=== PATIENT | female | born 1945 | race Two or more races ===

== ENCOUNTER 2017-05-05 06:50 | Emergency (ER) | payer BC ==
[2017-05-05 07:00] VITALS: BMI 33.7
--- NOTE | 2017-05-05 08:39 | PDOC ---
History of Present Illness - General History Source: Patient Exam Limitations: No Limitations - History of Present Illness Initial Comments: 05/05/17 09:21 The patient is a 72 year old female with a significant PMH of diabetes (on Lantus) who presents to the emergency department via EMS from home with weakness with associated loss of balance and vomiting beginning approximately this morning. The patient reports feeling generally weak with associated loss of balance and lightheadedness this morning, having to steady herself against the wall to reach her couch. The patient also reports 3-4 episodes of brown colored vomiting this morning and a dry cough since last night with associated throat irritation. She reports her last episode of vomiting was en route via EMS. She reports her last fluid intake was last night. She denies nausea at presentation. She denies any recent travel or sick contacts. The patient lives alone at home. The patient denies chest pain, shortness of breath, headache and dizziness. Denies fever, chills, diarrhea and constipation. Denies dysuria, frequency, urgency and hematuria. Allergies: NKA Past surgical history: None reported. Social history: No reported cigarette, alcohol, or drug use. PCP: Dr. Carr. <Kemal Jeong - Last Filed: 05/05/17 13:58> <Teresita Holland - Last Filed: 05/05/17 14:04> - General Chief Complaint: Nausea/Vomiting Stated Complaint: VOMITING Time Seen by Provider: 05/05/17 08:39 Past History <Kemal Jeong - Last Filed: 05/05/17 13:58> - Past Medical History COPD: No Diabetes: Yes - Surgical History Abdominal Surgery: No Cardiac Surgery: No Cholecystectomy: No GI Surgery: No Lung Surgery: No - Immunization History Immunization Up to Date: No - Suicide/Smoking/Psychosocial Hx Smoking History: Never smoked Have you smoked in the past 12 months: No Information on smoking cessation initiated: No Hx Alcohol Use: No Drug/Substance Use Hx: No <Teresita Holland - Last Filed: 05/05/17 14:04> - Past Medical History Allergies/Adverse Reactions: Allergies Allergy/AdvReac Type Severity Reaction Status Date / Time No Known Allergies Allergy Verified 05/05/17 07:00 Home Medications: Ambulatory Orders Azithromycin 250 mg PO DAILY 5 Days #6 tablet 05/05/17 Insulin Glargine,Hum.rec.anlog [Lant] 40 unit SQ HS 05/05/17 Review of Systems - Review of Systems Able to Perform ROS?: Yes Comments:: 05/05/17 09:21 Constitutional - (+) Generalized weakness. (+) Loss of balance. Pt denies Fever , Chills. HEENT: denies vision changes, sore throat Respiratory: (+) Dry cough with associated throat irritation. Denies sob, hemoptysis Cardiac: denies chest pain, palpitations, lightheadedness, leg swelling Abd/GI: (+) 3-4 episodes of brown vomiting. denies abd pain, blood per rectum, melena, diarrhea : denies dysuria, frequency, discharge Musculoskeletal - denies back pain, joint swelling Skin - denies bruising, erythema, rash Neurological: (+) Lightheadedness. denies headache, numbness, focal weakness, tingling, ataxia. Hematologic: denies anemia, easy bruising, easy bleeding <Kemal Jeong - Last Filed: 05/05/17 13:58> *Physical Exam - Vital Signs Last Vital Signs Temp Pulse Resp BP Pulse Ox 97.4 F L 72 19 154/72 96 05/05/17 06:55 05/05/17 06:55 05/05/17 06:55 05/05/17 06:55 05/05/17 06:55 - Physical Exam Comments: 05/05/17 09:21 GENERAL: The patient is awake, alert, and fully oriented, Nontoxic - in no acute distress. HEAD: Normocephalic, atraumatic. EYES: Pupils 2mm, round and reactive. extraocular movements intact, sclera anicteric, conjunctiva clear. ENT: (+) Dry oral mucosa. Normal voice. NECK: Normal range of motion, supple without lymphadenopathy, JVD, or masses. LUNGS: Breath sounds equal, clear to auscultation bilaterally. No wheezes, no crackles, no rales. HEART: Regular rate and rhythm, normal S1 and S2 without murmur, rub or gallop. ABDOMEN: Soft, nontender, normoactive bowel sounds. No guarding, no rebound. No masses. EXTREMITIES: Normal range of motion, no edema. No clubbing or cyanosis. No cords , erythema, or tenderness. NEUROLOGICAL: Unsteady gait. Fully Oriented, Alert, Normal Mood/Affect, Motor Strength 5/5. No facial asymmetry, Normal speech. SKIN: Warm, Dry, normal turgor, no rashes or lesions noted. <Kemal Jeong - Last Filed: 05/05/17 13:58> - Vital Signs Last Vital Signs Temp Pulse Resp BP Pulse Ox 97.4 F L 72 19 154/72 96 05/05/17 06:55 05/05/17 06:55 05/05/17 06:55 05/05/17 06:55 05/05/17 06:55 <Teresita Holland - Last Filed: 05/05/17 14:04> Heart Score/ECG Review #1 05/05/17 11:50 Vent rate 72 bpm Normal sinus rhythm Normal ECG <Kemal Jeong - Last Filed: 05/05/17 13:58> ED Treatment Course - LABORATORY CBC & Chemistry Diagram: 05/05/17 09:19 05/05/17 09:05 - Medications Given in the ED: ED Medications Discontinued Medications Generic Name Dose Route Start Last Admin Trade Name Freq PRN Reason Stop Dose Admin Famotidine 20 mg in 12 mls @ 144 mls/hr 05/05/17 08:49 05/05/17 09:12 Pepcid 20 Mg/12 Ml Push IVPB 05/05/17 08:53 144 mls/hr ONCE ONE Administration - Consult/PCP Time Called: 13:30 Case discussed with personal care physician: Steven Squires (scallop raker for Dr. Carr) <Kemal Jeong - Last Filed: 05/05/17 13:58> - LABORATORY CBC & Chemistry Diagram: 05/05/17 09:19 05/05/17 09:05 <Teresita Holland - Last Filed: 05/05/17 14:04> Medical Decision Making - Medical Decision Making 05/05/17 13:39 I, Dr. Teresita Holland, attest that the scribes documentation that appears above has been prepared under my direction and personally reviewed by me. I confirmed that the note above accurately reflects all work, treatment, procedures, and medical decision-making performed by me. Pt brought in from home by ems for eval of nausea and vomitting brown colored material. pt was given zofran, pepcid and fluid, pt is feeling better, no longer nauseous or vomitting, ct of head was done as pt initially c/o feeling a little dizzy and off balance with walking which has completely resolved. Pt has nl ekg and two sets of cardiac enzymes , pt wants to go home, as she has a dog at home that she needs to take care of, pt with nl exam and staeday gait at present, just ate lunch with no vomiting. Case discussed with Dr. Squires , will dc home and have pt f/u with pcp on sunday for reevaluation. Pt to return to ED for dizziness,trouble walking,fever, excessive cough,chest pain or as needed. PT agrees with this dc plan. Pt requested medication for cough, pt with mildly elevated wbc, but nl cxr will give azithromax for cough and slight sore throat. 05/05/17 14:03 <Teresita Holland - Last Filed: 05/05/17 14:04> *DC/Admit/Observation/Transfer - Attestations Scribe Attestion: 05/05/17 09:21 Documentation prepared by Kemal Jeong, acting as nuclear medicine medical director for Teresita Holland MD. <Kemal Jeong - Last Filed: 05/05/17 13:58> - Discharge Dispostion Admit: No <Teresita Holland - Last Filed: 05/05/17 14:04> Diagnosis at time of Disposition: Nausea and vomiting, Cough, Dizziness - Discharge Dispostion Disposition: HOME Condition at time of disposition: Stable - Prescriptions Prescriptions: Azithromycin 250 mg PO DAILY 5 Days #6 tablet - Referrals Referrals: Gordy Carr MD [Primary Care Provider] - - Patient Instructions Printed Discharge Instructions: DI for Vomiting -- Adult, DI for Dizziness- Nonvertigo - Post Discharge Activity
[2017-05-05] MEDS ORDERED: FAMOTIDINE IV 20 MG/12 ML VIAL IVPB ONE (08:49)
[2017-05-05] MEDS ORDERED: FAMOTIDINE 20 MG/50 ML IVPB 20 MG/50 ML MG IVPB ONE (09:13)
[2017-05-05] MEDS ORDERED: SODIUM CHLORIDE 1,000 ML IV SCH (09:15)
[2017-05-05 09:29] LABS: URINE APPEARANCE CLEAR; URINE BILIRUBIN NEGATIVE (NEGATIVE); URINE BLOOD NEGATIVE (NEGATIVE); URINE COLOR LTYELLOW; URINE GLUCOSE (UA) 3+ (NEGATIVE); URINE KETONE NEGATIVE (NEGATIVE); URINE LEUK ESTERASE NEGATIVE (NEGATIVE); URINE NITRITE NEGATIVE (NEGATIVE); URINE PROTEIN NEGATIVE (NEGATIVE); URINE UROBILINOGEN NEGATIVE mg/dL (0.2-1.0)
[2017-05-05 09:37] LABS: BASO % 0.6 % (0-2.0); EOS % 2.9 % (0-4.5); HEMATOCRIT 38.4 % (32.4-45.2); LYMPH % 7.3 % (8-40); MCH 25.2 pg (25.7-33.7); MCHC 31.3 g/dl (32.0-36.0); MEAN CELL VOLUME 80.7 fl (80-96); MEAN PLT VOLUME 9.7 fl (7.5-11.1); MONO % 3.8 % (3.8-10.2); NEUT % 85.4 % (42.8-82.8); PLATELET COUNT 213 K/MM3 (134-434); RBC 4.75 M/mm3 (3.60-5.2); RDW 14.8 % (11.6-15.6); WHITE BLOOD COUNT 11.5 K/mm3 (4.0-10.0)
[2017-05-05] MEDS ORDERED: ONDANSETRON 4 MG/2 ML VIAL IVPUSH ONE (09:51)
[2017-05-05 09:56] LABS: INR 1.14 (0.82-1.09); PROTHROMBIN TIME (PATIENT) 12.9 SEC (9.98-11.88)
[2017-05-05 09:58] LABS: ALBUMIN 3.3 g/dl (3.4-5.0); ANION GAP 9 (8-16); BILIRUBIN,TOTAL 0.3 mg/dL (0.2-1.0); BLOOD UREA NITROGEN 9 mg/dL (7-18); CALCIUM 7.7 mg/dL (8.5-10.1); CHLORIDE 105 mmol/L (98-107); CO2 25 mmol/L (21-32); CREATININE 0.9 mg/dL (0.55-1.02); GLUCOSE,RANDOM 194 mg/dL (74-106); POTASSIUM 4.2 mmol/L (3.5-5.1); SGOT/AST 17 U/L (15-37); SGPT/ALT 26 U/L (12-78); SODIUM 139 mmol/L (136-145); TOT PROT 7.2 g/dl (6.4-8.2)
[2017-05-05 10:01] LABS: ALK PHOS 201 U/L (45-117); N-TERMINAL BNP 304.83 pg/ml (5-125)
[2017-05-05] MEDS ORDERED: ONDANSETRON 4 MG/2 ML VIAL ONE (10:41)
--- NOTE | 2017-05-05 12:03 | EKG ---
Test Reason : Blood Pressure : / mmHG Vent. Rate : 072 BPM Atrial Rate : 072 BPM P-R Int : 148 ms QRS Dur : 080 ms QT Int : 408 ms P-R-T Axes : 063 007 063 degrees QTc Int : 446 ms POOR DATA QUALITY, INTERPRETATION MAY BE ADVERSELY AFFECTED NORMAL SINUS RHYTHM NORMAL ECG NO PREVIOUS ECGS AVAILABLE Confirmed by MD MULUGETA, CHARITY ([id number]) on 05/05/2017 12:02:58 PM Referred By: Confirmed By:CHARITY DALAL MD
[2017-05-05 14:04] VITALS: BP 130/72; PULSE 66; TEMP 97.8
== END 2017-05-05 14:10 | disposition home or self-care (01) ==
LOC: JER 06:50
PROC: 3E0337Z Introduction of Electrolytic and Water Balance Substance into Peripheral Vein, Percutaneous Approach (ICD-10-PCS; principal; 2017-05-05)
DX: R42 Dizziness and giddiness (principal); R11.2 Nausea with vomiting, unspecified
CPT/HCPCS: 36415; 70450-TC; 71046-TC; 80053; 81003; 82272; 82550; 83880; 84484; 85025; 85610; 93005; 93010; 96361; 96374; 96375; 99284-25

== ENCOUNTER 2020-12-23 15:49 | Emergency (ER) | payer BC, OTHER ==
[2020-12-23 16:18] VITALS: BP 130/73; PULSE 73; TEMP 98.3; BMI 31.2
[2020-12-23] MEDS ORDERED: ACETAMINOPHEN 500 MG TABLET (FP) PO ONE (17:27)
[2020-12-23] MEDS ORDERED: ACETAMINOPHEN 500 MG TABLET (FP) ONE (17:33)
== END 2020-12-23 18:12 | disposition home or self-care (01) ==
LOC: JERFT 15:49
DX: S93.402A Sprain of unspecified ligament of left ankle, initial encounter (principal); W01.0XXA Fall on same level from slipping, tripping and stumbling without subsequent striking against object, initial encounter; Y92.9 Unspecified place or not applicable
CPT/HCPCS: 73610-TC-LT-FY; 73630-TC-LT; 99284-25

== ENCOUNTER 2021-06-10 10:32 | Inpatient (IN) | payer OTHER ==
[2021-06-10] MEDS ORDERED: ACETAMINOPHEN 1000 MG/100 ML BAG IVPB ONE (11:05)
[2021-06-10] MEDS ORDERED: LACTATED RINGERS SOLUTION 1000 ML INFUS.BAG IV ONE (11:06)
[2021-06-10] MEDS ORDERED: ACETAMINOPHEN INJECTION 100 ML IVPB ONE (12:09)
[2021-06-10] MEDS ORDERED: ONDANSETRON 4 MG/2 ML VIAL IVPUSH ONE (12:26)
[2021-06-10] MEDS ORDERED: ONDANSETRON 4 MG/2 ML VIAL ONE (13:19)
[2021-06-10 13:37] LABS: BASO % 0.7 % (0-2.0); EOS % 0.1 % (0-4.5); HEMOGLOBIN 14.7 GM/dL (10.7-15.3); LYMPH % 13.2 % (8-40); MCH 27.7 pg (25.7-33.7); MCHC 32.7 g/dl (32.0-36.0); MEAN CELL VOLUME 84.9 fl (80-96); MEAN PLT VOLUME 9.4 fl (7.5-11.1); MONO % 5.3 % (3.8-10.2); NEUT % 80.7 % (42.8-82.8); PLATELET COUNT 261 10^3/uL (134-434); RBC 5.31 M/mm3 (3.60-5.2); RDW 14.2 % (11.6-15.6); WHITE BLOOD COUNT 12.2 K/mm3 (4.0-10.0)
[2021-06-10 13:42] LABS: VENOUS O2 SATURATION 80.4 % (70-80); VENOUS PCO2 43.2 mmHg (38-52); VENOUS PH 7.356 (7.310-7.410)
[2021-06-10 13:51] LABS: ACTIVATED PTT 32.2 SECONDS (25.2-36.5); INR 1.07 (0.83-1.09); PROTHROMBIN TIME (PATIENT) 12.3 SEC (9.7-13.0)
[2021-06-10 14:00] LABS: BLOOD UREA NITROGEN 32.6 mg/dL (7-18); CALCIUM 10.1 mg/dL (8.5-10.1)
[2021-06-10 14:01] LABS: ALBUMIN 3.8 g/dl (3.4-5.0); MAGNESIUM 2.8 mg/dL (1.8-2.4)
[2021-06-10 14:02] LABS: CREATININE 1.2 mg/dL (0.55-1.3)
[2021-06-10 14:04] LABS: TOT PROT 8.4 g/dl (6.4-8.2)
[2021-06-10 14:05] LABS: BILIRUBIN,TOTAL 0.4 mg/dL (0.2-1)
[2021-06-10 14:20] LABS: LACTIC ACID 2.2 mmol/L (0.4-2.0)
[2021-06-10 19:09] LABS: EPI CELLS 11 /uL (0-25.1); HYALINE CASTS 0 /uL (0-3.1); PH,URINE 5.5 (5.0-8.0); URINE APPEARANCE Clear; URINE BACTERIA 379 /uL (0-1359); URINE BILIRUBIN Negative (NEGATIVE); URINE COLOR Yellow; URINE GLUCOSE (UA) >=1000 (NEGATIVE); URINE KETONE 40 mg/dl (NEGATIVE); URINE LEUK ESTERASE Negative (NEGATIVE); URINE NITRITE Negative (NEGATIVE); URINE PROTEIN 30 (NEGATIVE); URINE RBC 8 /uL (0-23.9); URINE UROBILINOGEN 0.2 mg/dL (0.2-1.0)
[2021-06-10 20:14] LABS: LACTIC ACID 2.9 mmol/L (0.4-2.0)
[2021-06-10] MEDS ORDERED: ONDANSETRON 4 MG/2 ML VIAL IVPUSH PRN (20:16)
[2021-06-10] MEDS ORDERED: SODIUM CHLORIDE 1,000 ML IV STA (20:18)
[2021-06-10 22:07] LABS: URINE WBC 110 /uL (0-25.8)
[2021-06-10 22:29] LABS: CALCIUM 8.6 mg/dL (8.5-10.1)
[2021-06-10 22:30] LABS: BLOOD UREA NITROGEN 26.2 mg/dL (7-18); MAGNESIUM 2.4 mg/dL (1.8-2.4)
[2021-06-10] MEDS: SODIUM CHLORIDE 0.45% 1,000 ML IV SCH (23:06)
[2021-06-11 01:16] VITALS: BMI 29.5
[2021-06-11] MEDS: SODIUM CHLORIDE 0.45% 1,000 ML IV SCH (06:03)
[2021-06-11] MEDS: INSULIN SLIDING SCALE (NOVOLOG) 1 VIAL SQ SCH ×4 (06:06→21:34)
[2021-06-11 09:06] LABS: BASO % 1.1 % (0-2.0); EOS % 6.2 % (0-4.5); HEMATOCRIT 38.4 % (32.4-45.2); HEMOGLOBIN 12.4 GM/dL (10.7-15.3); LYMPH % 23.5 % (8-40); MCH 27.4 pg (25.7-33.7); MCHC 32.2 g/dl (32.0-36.0); MEAN CELL VOLUME 85.1 fl (80-96); MEAN PLT VOLUME 10.1 fl (7.5-11.1); MONO % 6.5 % (3.8-10.2); NEUT % 62.7 % (42.8-82.8); PLATELET COUNT 210 10^3/uL (134-434); RBC 4.52 M/mm3 (3.60-5.2); RDW 13.7 % (11.6-15.6); WHITE BLOOD COUNT 11.4 K/mm3 (4.0-10.0)
[2021-06-11 09:09] LABS: INR 1.14 (0.83-1.09); PROTHROMBIN TIME (PATIENT) 13.1 SEC (9.7-13.0)
[2021-06-11 09:11] LABS: ACTIVATED PTT 24.6 SECONDS (25.2-36.5)
[2021-06-11 09:35] LABS: BLOOD UREA NITROGEN 19.8 mg/dL (7-18); CALCIUM 8.1 mg/dL (8.5-10.1)
[2021-06-11 09:38] LABS: CREATININE 0.7 mg/dL (0.55-1.3)
[2021-06-11 09:40] LABS: BILIRUBIN,TOTAL 0.6 mg/dL (0.2-1); PHOSPHOROUS 2.9 mg/dL (2.5-4.9)
[2021-06-11 09:47] LABS: ALBUMIN 2.6 g/dl (3.4-5.0); TOT PROT 5.9 g/dl (6.4-8.2)
[2021-06-11] MEDS ORDERED: FLU VACC QS2021-22(6MOS UP)/PF 60 MCG/0.5 ML SYRINGE IM ONE (10:00)
[2021-06-11] MEDS ORDERED: PNEUMOC 13-VAL CONJ-DIP CRM/PF 0.5 ML DISP.SYRIN IM ONE (10:00)
[2021-06-11] MEDS: SODIUM CHLORIDE 1,000 ML IV SCH (15:26)
[2021-06-12] MEDS: INSULIN SLIDING SCALE (NOVOLOG) 1 VIAL SQ SCH ×4 (06:18→21:35)
[2021-06-12 07:58] LABS: EOS % 8.8 % (0-4.5); HEMATOCRIT 39.1 % (32.4-45.2); HEMOGLOBIN 12.9 GM/dL (10.7-15.3); LYMPH % 19.3 % (8-40); MCH 28.1 pg (25.7-33.7); MCHC 33.1 g/dl (32.0-36.0); MEAN CELL VOLUME 84.8 fl (80-96); MEAN PLT VOLUME 9.6 fl (7.5-11.1); MONO % 5.7 % (3.8-10.2); NEUT % 65.2 % (42.8-82.8); PLATELET COUNT 216 10^3/uL (134-434); RBC 4.61 M/mm3 (3.60-5.2)
[2021-06-12 08:15] LABS: MAGNESIUM 1.9 mg/dL (1.8-2.4)
[2021-06-12 08:16] LABS: CALCIUM 8.2 mg/dL (8.5-10.1)
[2021-06-12 08:17] LABS: ALBUMIN 2.8 g/dl (3.4-5.0); BLOOD UREA NITROGEN 24.6 mg/dL (7-18)
[2021-06-12 08:19] LABS: CREATININE 0.9 mg/dL (0.55-1.3)
[2021-06-12 08:20] LABS: PHOSPHOROUS 2.8 mg/dL (2.5-4.9)
[2021-06-12 08:21] LABS: BILIRUBIN,TOTAL 0.4 mg/dL (0.2-1); TOT PROT 6.4 g/dl (6.4-8.2)
[2021-06-12] MEDS: SODIUM CHLORIDE 1,000 ML IV SCH (18:36)
[2021-06-12] MEDS: HEPARIN NA (PORCINE) 5,000 UNITS/ML 1ML VIAL SQ SCH (21:34)
[2021-06-12] MEDS: INSULIN (LEVEMIR) 100 UNITS/ML UNITS SQ SCH (21:36)
[2021-06-13] MEDS: INSULIN SLIDING SCALE (NOVOLOG) 1 VIAL SQ SCH ×4 (06:07→21:50)
[2021-06-13] MEDS: HEPARIN NA (PORCINE) 5,000 UNITS/ML 1ML VIAL SQ SCH ×2 (09:34→21:51)
[2021-06-13] MEDS: INSULIN (LEVEMIR) 100 UNITS/ML UNITS SQ SCH ×2 (09:34→21:50)
[2021-06-13] MEDS: LISINOPRIL 5 MG TABLET PO SCH (09:34)
[2021-06-13 09:37] LABS: BASO % 0.9 % (0-2.0); EOS % 12.4 % (0-4.5); HEMOGLOBIN 11.7 GM/dL (10.7-15.3); LYMPH % 22.9 % (8-40); MCH 27.9 pg (25.7-33.7); MCHC 33.4 g/dl (32.0-36.0); MEAN CELL VOLUME 83.6 fl (80-96); MEAN PLT VOLUME 9.6 fl (7.5-11.1); NEUT % 56.8 % (42.8-82.8); PLATELET COUNT 184 10^3/uL (134-434); RBC 4.19 M/mm3 (3.60-5.2); RDW 13.6 % (11.6-15.6); WHITE BLOOD COUNT 8.3 K/mm3 (4.0-10.0)
[2021-06-13 09:58] LABS: ALBUMIN 2.4 g/dl (3.4-5.0); BLOOD UREA NITROGEN 13.5 mg/dL (7-18); CALCIUM 7.9 mg/dL (8.5-10.1)
[2021-06-13 10:01] LABS: CREATININE 0.6 mg/dL (0.55-1.3)
[2021-06-13 10:02] LABS: BILIRUBIN,TOTAL 0.3 mg/dL (0.2-1)
[2021-06-13 10:03] LABS: TOT PROT 5.5 g/dl (6.4-8.2)
[2021-06-13] MEDS: SODIUM CHLORIDE 1,000 ML IV SCH (18:08)
[2021-06-14] MEDS: INSULIN SLIDING SCALE (NOVOLOG) 1 VIAL SQ SCH ×4 (06:23→21:30)
[2021-06-14] MEDS: LISINOPRIL 5 MG TABLET PO SCH (09:59)
[2021-06-14] MEDS: HEPARIN NA (PORCINE) 5,000 UNITS/ML 1ML VIAL SQ SCH ×2 (10:00→21:25)
[2021-06-14] MEDS: INSULIN (LEVEMIR) 100 UNITS/ML UNITS SQ SCH ×2 (10:00→21:30)
[2021-06-14 10:21] LABS: HEMATOCRIT 35.1 % (32.4-45.2); MCH 28.6 pg (25.7-33.7); MEAN CELL VOLUME 84.1 fl (80-96); MEAN PLT VOLUME 10.3 fl (7.5-11.1); PLATELET COUNT 173 10^3/uL (134-434); RBC 4.18 M/mm3 (3.60-5.2); RDW 13.5 % (11.6-15.6); WHITE BLOOD COUNT 8.2 K/mm3 (4.0-10.0)
[2021-06-14] MEDS ORDERED: LISINOPRIL 10 MG TABLET PO ONE (10:35)
[2021-06-14 10:53] LABS: ALBUMIN 2.4 g/dl (3.4-5.0); BLOOD UREA NITROGEN 10.1 mg/dL (7-18); CREATININE 0.7 mg/dL (0.55-1.3)
[2021-06-14 10:54] LABS: TOT PROT 5.7 g/dl (6.4-8.2)
[2021-06-14 10:55] LABS: BILIRUBIN,TOTAL 0.4 mg/dL (0.2-1)
[2021-06-14 10:57] LABS: CALCIUM 7.8 mg/dL (8.5-10.1)
[2021-06-15] MEDS: INSULIN (LEVEMIR) 100 UNITS/ML UNITS SQ SCH ×2 (06:24→21:30)
[2021-06-15] MEDS: INSULIN SLIDING SCALE (NOVOLOG) 1 VIAL SQ SCH ×4 (06:24→21:29)
[2021-06-15] MEDS: PANTOPRAZOLE SODIUM 40 MG VIAL IVPUSH SCH ×2 (08:41→09:01)
[2021-06-15 08:44] LABS: HEMATOCRIT 35.2 % (32.4-45.2); HEMOGLOBIN 11.9 GM/dL (10.7-15.3); MCH 28.3 pg (25.7-33.7); MCHC 33.9 g/dl (32.0-36.0); MEAN CELL VOLUME 83.4 fl (80-96); PLATELET COUNT 176 10^3/uL (134-434); RBC 4.22 M/mm3 (3.60-5.2); RDW 13.4 % (11.6-15.6); WHITE BLOOD COUNT 8.3 K/mm3 (4.0-10.0)
[2021-06-15 09:11] LABS: ALBUMIN 2.4 g/dl (3.4-5.0); BLOOD UREA NITROGEN 14.1 mg/dL (7-18)
[2021-06-15 09:13] LABS: CALCIUM 8.2 mg/dL (8.5-10.1); CREATININE 0.8 mg/dL (0.55-1.3)
[2021-06-15 09:15] LABS: TOT PROT 5.7 g/dl (6.4-8.2)
[2021-06-15 09:19] LABS: N-TERMINAL BNP 313.5 pg/ml (5-450)
[2021-06-15] MEDS ORDERED: LISINOPRIL 20 MG TABLET PO SCH (10:00)
[2021-06-15] MEDS ORDERED: BUPIVACAINE HCL/PF 0.5% (5MG/ML) 10 ML VIAL ONE (10:46)
[2021-06-15] MEDS ORDERED: LIDOCAINE HCL/PF 2% SDV 5ML VIAL ONE (10:55)
[2021-06-15] MEDS ORDERED: PROPOFOL 20 ML ONE ×2 (10:56→12:18)
[2021-06-15] MEDS ORDERED: ROCURONIUM BROMIDE 100 MG/10 ML VIAL ONE (10:56)
[2021-06-15] MEDS ORDERED: MIDAZOLAM HCL 2 MG/2 ML SINGLE DOSE VIAL ONE (10:56)
[2021-06-15] MEDS ORDERED: PHENYLEPHRINE HCL 10 MG/1 ML SINGLE DOSE VIAL ONE (10:56)
[2021-06-15] MEDS ORDERED: SUCCINYLCHOLINE CHLORIDE 200 MG/10 ML SYRINGE ONE (10:56)
[2021-06-15] MEDS ORDERED: ONDANSETRON 4 MG/2 ML VIAL IVPUSH PRN ×3 (11:19→14:21)
[2021-06-15] MEDS ORDERED: PROMETHAZINE HCL 25 MG/1 ML VIAL IVPUSH PRN ×2 (11:19→14:21)
[2021-06-15] MEDS ORDERED: BUPIVACAINE HCL/PF 0.5% (5MG/ML) 10 ML VIAL NR ONE (11:20)
[2021-06-15] MEDS ORDERED: LACTATED RINGERS SOLUTION 1,000 ML IV SCH ×3 (11:30→18:45)
[2021-06-15] MEDS ORDERED: ceFAZolin SODIUM 1 GM VIAL IVPB ONE (11:45)
[2021-06-15] MEDS ORDERED: DEXAMETHASONE SOD PHOSPHATE 4 MG/1 ML VIAL ONE ×2 (11:57→12:53)
[2021-06-15] MEDS ORDERED: ONDANSETRON 4 MG/2 ML VIAL ONE (11:57)
[2021-06-15] MEDS ORDERED: NEOSTIGMINE METHYLSULFATE 0.5 MG/ML - 10 ML MDV ONE (12:49)
[2021-06-15] MEDS ORDERED: GLYCOPYRROLATE 0.2 MG/1 ML VIAL ONE (12:50)
[2021-06-15] MEDS ORDERED: KETOROLAC TROMETHAMINE 30 MG/1 ML VIAL ONE (12:53)
[2021-06-15] MEDS ORDERED: ceFAZolin SODIUM 1 GM VIAL ONE (13:08)
[2021-06-15] MEDS ORDERED: IBUPROFEN 600 MG TABLET (FP) PO PRN (13:33)
[2021-06-15] MEDS ORDERED: ACETAMINOPHEN 500 MG TABLET (FP) PO PRN (13:35)
[2021-06-15] MEDS ORDERED: LISINOPRIL 20 MG TABLET PO ONE (18:43)
[2021-06-15] MEDS: oxyCODONE HCL 5 MG TABLET PO PRN (18:56)
[2021-06-16] MEDS: INSULIN (LEVEMIR) 100 UNITS/ML UNITS SQ SCH ×2 (06:33→21:33)
[2021-06-16] MEDS: INSULIN SLIDING SCALE (NOVOLOG) 1 VIAL SQ SCH ×4 (06:33→21:33)
[2021-06-16 09:31] LABS: HEMATOCRIT 37.6 % (32.4-45.2); HEMOGLOBIN 12.2 GM/dL (10.7-15.3); MCH 27.5 pg (25.7-33.7); MCHC 32.3 g/dl (32.0-36.0); MEAN PLT VOLUME 10.6 fl (7.5-11.1); PLATELET COUNT 214 10^3/uL (134-434); RBC 4.42 M/mm3 (3.60-5.2); RDW 13.5 % (11.6-15.6); WHITE BLOOD COUNT 14.3 K/mm3 (4.0-10.0)
[2021-06-16 10:07] LABS: CALCIUM 8.6 mg/dL (8.5-10.1)
[2021-06-16 10:08] LABS: ALBUMIN 2.7 g/dl (3.4-5.0)
[2021-06-16 10:11] LABS: CREATININE 0.8 mg/dL (0.55-1.3)
[2021-06-16 10:13] LABS: BILIRUBIN,TOTAL 0.6 mg/dL (0.2-1); TOT PROT 6.2 g/dl (6.4-8.2)
[2021-06-16] MEDS: LISINOPRIL 20 MG TABLET PO SCH (10:46)
[2021-06-16] MEDS: HEPARIN NA (PORCINE) 5,000 UNITS/ML 1ML VIAL SQ SCH ×2 (10:46→21:33)
[2021-06-16] MEDS: PANTOPRAZOLE SODIUM 40 MG VIAL IVPUSH SCH (10:46)
[2021-06-17] MEDS: oxyCODONE HCL 5 MG TABLET PO PRN (00:14)
[2021-06-17] MEDS: INSULIN (LEVEMIR) 100 UNITS/ML UNITS SQ SCH (06:30)
[2021-06-17] MEDS: INSULIN SLIDING SCALE (NOVOLOG) 1 VIAL SQ SCH ×2 (06:31→11:37)
[2021-06-17] MEDS ORDERED: SENNOSIDES 8.6MG TABLET (FP) PO ONE (09:00)
[2021-06-17 09:04] VITALS: BP 127/43; PULSE 75; TEMP 98.4
[2021-06-17] MEDS: HEPARIN NA (PORCINE) 5,000 UNITS/ML 1ML VIAL SQ SCH (09:51)
[2021-06-17] MEDS: PANTOPRAZOLE SODIUM 40 MG VIAL IVPUSH SCH (09:51)
[2021-06-17] MEDS: LISINOPRIL 20 MG TABLET PO SCH (09:51)
[2021-06-17] MEDS ORDERED: POLYETHYLENE GLYCOL (HEALTHYLAX) 3350 17 GM PACKET PO SCH (10:00)
[2021-06-17 10:32] LABS: ALBUMIN 2.4 g/dl (3.4-5.0); BLOOD UREA NITROGEN 11.8 mg/dL (7-18); CALCIUM 7.7 mg/dL (8.5-10.1); HEMOGLOBIN 11.2 GM/dL (10.7-15.3); MCH 28.5 pg (25.7-33.7); MCHC 33.8 g/dl (32.0-36.0); MEAN CELL VOLUME 84.3 fl (80-96); MEAN PLT VOLUME 10.8 fl (7.5-11.1); PLATELET COUNT 186 10^3/uL (134-434); RBC 3.91 M/mm3 (3.60-5.2); RDW 13.8 % (11.6-15.6); WHITE BLOOD COUNT 9.9 K/mm3 (4.0-10.0)
[2021-06-17 10:35] LABS: CREATININE 0.7 mg/dL (0.55-1.3)
[2021-06-17 10:36] LABS: BILIRUBIN,TOTAL 0.3 mg/dL (0.2-1); TOT PROT 5.7 g/dl (6.4-8.2)
[2021-06-17] MEDS ORDERED: FLU VACC QS2021-22(6MOS UP)/PF 60 MCG/0.5 ML SYRINGE IM ONE (13:00)
[2021-06-17] MEDS ORDERED: PNEUMOC 13-VAL CONJ-DIP CRM/PF 0.5 ML DISP.SYRIN IM ONE (13:00)
== END 2021-06-17 14:18 | disposition home or self-care (01) | DRG 418 ==
LOC: JER 10:32 → JERBED 17:46 → J5S 23:53
PROVIDERS: ADMIT Hospitalist; ATTEND Internal Medicine
PROC: 0FT44ZZ Resection of Gallbladder, Percutaneous Endoscopic Approach (ICD-10-PCS; principal; 2021-06-15 11:00)
DX: K80.63 Calculus of gallbladder and bile duct with acute cholecystitis with obstruction (principal); E87.0 Hyperosmolality and hypernatremia; E87.2 Acidosis; E11.65 Type 2 diabetes mellitus with hyperglycemia; F03.90 Unspecified dementia, unspecified severity, without behavioral disturbance, psychotic disturbance, mood disturbance, and anxiety; F22 Delusional disorders; K76.0 Fatty (change of) liver, not elsewhere classified; I10 Essential (primary) hypertension; D72.829 Elevated white blood cell count, unspecified; E86.0 Dehydration; R11.2 Nausea with vomiting, unspecified; K57.30 Diverticulosis of large intestine without perforation or abscess without bleeding; R82.81 Pyuria; E66.3 Overweight; Z68.29 Body mass index [BMI] 29.0-29.9, adult; Z91.14 Patient's other noncompliance with medication regimen
CPT/HCPCS: 36415; 70450-TC; 74177-TC; 74181-TC; 76705-TC; 78226-TC; 80048; 80053; 80061; 81003; 82010; 82150; 82550; 82803; 82962; 83036; 83605; 83690; 83735; 83880; 84100; 84436; 84439; 84443; 84484; 85025; 85027; 85610; 85730; 86140; 86850; 86900; 86901; 87040; 87077; 87086; 88304-TC; 90670; 90686; 93005; 93010; 93306-TC; 94010; 94760; 97116-GP; 97161-GP; 99285-25; A9537; C9803-CS; G0008; G0009; J1644; U0003; U0005